=== PATIENT | male | born 1955 | race Caucasian/White ===

== ENCOUNTER 2017-04-19 09:02 | Emergency (ER) | payer MEDICARE, MEDICAID ==
[~2017-04-19] VITALS: Ht 170.2 cm; Wt 77.0 kg
[~2017-04-19 09:02] MED LIST: ADVAIR DISK2 IN; ALVESCO IN; AMOXICILLIN500 MG PO; ATROVENT HFA17 MCG IN; AUGMENTIN875TAB PO; CEPHALEXIN500 MG PO; CIALIS5 MG PO; DOXYCYCL HYC100 MG PO; GABAPENTIN300 MG PO; IPRATROPIU0.5 MG/3 M IN; LEVAQUIN500 MG PO; LORTAB 5/3255 MG PO; MEDDOSEPAK PO; NEURONTIN100 MG PO; PERCOCET 10/31 COMBO PO; PREDNISONE10 MG PO; PREDNISONE20 MG PO; PRILOSEC20 MG/CAP PO; PRILOSEC40 MG PO; PYRIDIUM200 MG PO; ROBITUSSIN AC10 ML PO; TERAZOSIN1 MG PO; TERAZOSIN2 MG PO; XOPENEX0.63 MG IN; ZPAK PO; [UNRECOGNIZED DRUG - OTHER]
[2017-04-19] MEDS ORDERED: ATORVASTATIN CA40 MG PO (09:45)
[2017-04-19] MEDS ORDERED: COMBIVENT RESPIMAT IN (09:46)
[2017-04-19] MEDS ORDERED: ASPIRIN81 MG PO (09:46)
[2017-04-19] MEDS ORDERED: TOPROL XL25 MG PO (09:47)
[2017-04-19] MEDS ORDERED: SYMBICORT 80-4.5MCG IN (09:49)
[2017-04-19] MEDS ORDERED: TRAZODONE50 MG PO (09:50)
[2017-04-19 10:42] LABS: HEMATOCRIT 36.7 % (39.0-50.0); IMMATURE GRANULOCYTES 0.5 % (0.0-1.0); MEAN CELL VOLUME 89.7 fL CALC (80.0-100.0); MEAN CORPUSCULAR HGB 31.8 pG CALC (26.0-32.0); MEAN CORPUSCULAR HGB CONC 35.4 g/L CALC (32.0-36.0); NEUT# 3.26 thou/uL (1.82-7.42); RED BLOOD COUNT 4.09 mill/uL (4.70-6.10); RED CELL DISTRI WIDTH 12.6 % (11.5-15.5)
[2017-04-19 10:44] LABS: URINE BILIRUBIN - DIPSTICK NEGATIVE (NEGATIVE); URINE BLOOD DIPSTICK NEGATIVE (NEGATIVE); URINE CLARITY CLEAR; URINE COLOR YELLOW; URINE GLUCOSE - DIPSTICK NEGATIVE (NEGATIVE); URINE KETONE NEGATIVE (NEGATIVE); URINE LEUK ESTERASE NEGATIVE (NEGATIVE); URINE NITRITE - DIPSTICK NEGATIVE (Negative); URINE PROTEIN - DIPSTICK TRACE mg/dL (NEG-TRACE); URINE SPECIFIC GRAVITY 1.015; URINE UROBILINOGEN - DIPSTICK >=8.0 E.U./dL (0.2)
[2017-04-19 10:54] LABS: D-DIMER 0.48 mg/L (0.19-0.60); INTERNATIONAL NORMALIZED RATIO 0.9 RATIO (0.7-1.3)
[2017-04-19 10:56] LABS: ALBUMIN 4.1 g/dL (3.2-5.0); ALKALINE PHOSPHATASE 63 u/l (38-126); ANION GAP 13 (6-22 (CALC)); BILIRUBIN, TOTAL 1.2 mg/dL (0.0-1.4); BUN 10 mg/dL (8-23); BUN/CREATININE RATIO 15 (12-20 (CALC)); CALCIUM 9.1 mg/dL (8.4-10.2); CARBON DIOXIDE 26 mmol/l (22-30); CHLORIDE 103 mmol/l (95-108); CREATININE 0.7 mg/dL (0.7-1.3); GFR > 60 ML/MIN (>=60 (CALC)); GFR FOR AFR.AMER. > 60 ML/MIN (>=60 (CALC)); GLUCOSE 114 mg/dL (82-115); POTASSIUM 4.1 mmol/l (3.5-5.1); SGOT/AST 18 u/l (19-48); SGPT/ALT 27 u/l (11-66); SODIUM 138 mmol/l (137-146); TOTAL PROTEIN 6.7 g/dL (6.3-8.2)
[2017-04-19 11:07] LABS: MYOGLOBIN 70 ng/mL (0 - 121)
[2017-04-19] MEDS ORDERED: CEPHALEXIN500 MG PO (13:28)
[2017-04-19 13:42] VITALS: BP 140/78
== END 2017-04-19 13:51 | disposition home or self-care (01) ==
LOC: ED 09:02
PROVIDERS: Emergency Medicine
DX: J44.9 Chronic obstructive pulmonary disease, unspecified (principal); J40 Bronchitis, not specified as acute or chronic; R05 Cough
CPT/HCPCS: Q9967

== ENCOUNTER 2017-09-12 07:58 | Emergency (ER) | payer MEDICARE, MEDICAID ==
[~2017-09-12] VITALS: Ht 170.2 cm; Wt 70.0 kg
[~2017-09-12 07:58] MED LIST changes: +ASPIRIN81 MG PO; +ATORVASTATIN CA40 MG PO; +COMBIVENT RESPIMAT IN; +SYMBICORT 80-4.5MCG IN; +TOPROL XL25 MG PO; +TRAZODONE50 MG PO
[2017-09-12] MEDS ORDERED: ULTRAM50 M1 PO (09:08)
[2017-09-12 09:22] VITALS: BP 148/84
== END 2017-09-12 09:25 | disposition home or self-care (01) ==
LOC: ED 07:58
PROC: 2W3DX1Z Immobilization of Left Lower Arm using Splint (ICD-10-PCS; principal; 2017-09-12)
DX: S52.202A Unspecified fracture of shaft of left ulna, initial encounter for closed fracture (principal); J44.9 Chronic obstructive pulmonary disease, unspecified; K21.9 Gastro-esophageal reflux disease without esophagitis; I25.2 Old myocardial infarction; Z85.46 Personal history of malignant neoplasm of prostate; W11.XXXA Fall on and from ladder, initial encounter

== ENCOUNTER 2017-11-01 19:58 | Emergency (ER) | payer MEDICARE, MEDICAID ==
[~2017-11-01] VITALS: Ht 170.2 cm; Wt 73.6 kg
[~2017-11-01 19:58] MED LIST changes: +ULTRAM50 M1 PO
[2017-11-01] MEDS ORDERED: PERCOCET 5/325M1 TAB PO (22:13)
[2017-11-01 22:29] VITALS: BP 136/81
== END 2017-11-01 22:29 | disposition home or self-care (01) ==
LOC: ED 19:58
DX: S70.01XA Contusion of right hip, initial encounter (principal); S40.812A Abrasion of left upper arm, initial encounter; S40.811A Abrasion of right upper arm, initial encounter; V03.19XA Pedestrian with other conveyance injured in collision with car, pick-up truck or van in traffic accident, initial encounter; Y92.410 Unspecified street and highway as the place of occurrence of the external cause; Y93.I9 Activity, other involving external motion

== ENCOUNTER 2018-11-05 17:42 | Emergency (ER) | payer MEDICARE, MEDICAID ==
[~2018-11-05] VITALS: Ht 170.2 cm; Wt 70.0 kg
[~2018-11-05 17:42] MED LIST changes: +PERCOCET 5/325M1 TAB PO
[2018-11-05 18:33] LABS: HEMOGLOBIN 12.8 g/dl (14.0-18.0); IMMATURE GRANULOCYTES 0.6 % (0.0-5.0); MEAN CORPUSCULAR HGB 31.8 pG CALC (26.0-32.0); MEAN CORPUSCULAR HGB CONC 34.6 g/L CALC (32.0-36.0); NEUT# 5.12 thou/uL (1.82-7.42); RED BLOOD COUNT 4.02 mill/uL (4.70-6.10); RED CELL DISTRI WIDTH 12.7 % (11.5-15.5)
[2018-11-05 18:45] LABS: ALBUMIN 4.1 g/dL (3.2-5.0); ALKALINE PHOSPHATASE 83 u/l (38-126); ANION GAP 18 (6-22 (CALC)); BILIRUBIN, TOTAL 1.2 mg/dL (0.0-1.4); BUN 11 mg/dL (8-23); BUN/CREATININE RATIO 16 (12-20 (CALC)); CARBON DIOXIDE 27 mmol/l (22-30); CHLORIDE 98 mmol/l (95-108); CREATININE 0.7 mg/dL (0.7-1.3); GFR > 60 ML/MIN (>=60 (CALC)); GFR FOR AFR.AMER. > 60 ML/MIN (>=60 (CALC)); POTASSIUM 3.8 mmol/l (3.5-5.1); SGOT/AST 31 u/l (19-48); SODIUM 138 mmol/l (137-146); TOTAL PROTEIN 6.9 g/dL (6.3-8.2)
[2018-11-05] MEDS ORDERED: PREDNISONE50 MG PO (19:09)
[2018-11-05] MEDS ORDERED: DOXYCYCL HYC100 MG PO (19:09)
--- NOTE | 2018-11-05 19:15 | NUR ---
BREATHING TREATMENT GIVEN BACK TO BACK.
[2018-11-05 19:31] VITALS: BP 147/81
== END 2018-11-05 19:39 | disposition home or self-care (01) ==
LOC: ED 17:42
PROVIDERS: Emergency Medicine
DX: J18.9 Pneumonia, unspecified organism (principal); J44.1 Chronic obstructive pulmonary disease with (acute) exacerbation; R06.02 Shortness of breath; R00.0 Tachycardia, unspecified; R50.9 Fever, unspecified; R05 Cough; I10 Essential (primary) hypertension

== ENCOUNTER → 2018-12-05 | Outpatient (REF) | payer MEDICARE, MEDICAID ==
[~2018-12-05] MED LIST changes: +PREDNISONE50 MG PO
== END | disposition home or self-care (01) ==
LOC: LABREF 17:27
PROVIDERS: ATTEND Urology
DX: C61 Malignant neoplasm of prostate (principal)

== ENCOUNTER 2019-02-06 19:21 | Emergency (ER) | payer MEDICARE, MEDICAID ==
[~2019-02-06] VITALS: Ht 170.2 cm; Wt 76.8 kg
[2019-02-06 20:19] LABS: HEMATOCRIT 41.1 % (39.0-50.0); HEMOGLOBIN 13.8 g/dl (14.0-18.0); IMMATURE GRANULOCYTES 0.3 % (0.0-5.0); MEAN CELL VOLUME 92.2 fL CALC (80.0-100.0); MEAN CORPUSCULAR HGB 30.9 pG CALC (26.0-32.0); MEAN CORPUSCULAR HGB CONC 33.6 g/L CALC (32.0-36.0); NEUT# 2.61 thou/uL (1.82-7.42); RED BLOOD COUNT 4.46 mill/uL (4.70-6.10); RED CELL DISTRI WIDTH 12.9 % (11.5-15.5)
[2019-02-06 20:25] LABS: ALBUMIN 4.4 g/dL (3.2-5.0); ALKALINE PHOSPHATASE 63 u/l (38-126); ANION GAP 14 (6-22 (CALC)); BUN 16 mg/dL (8-23); BUN/CREATININE RATIO 23 (12-20 (CALC)); CARBON DIOXIDE 28 mmol/l (22-30); CHLORIDE 100 mmol/l (95-108); CREATININE 0.7 mg/dL (0.7-1.3); GFR > 60 ML/MIN (>=60 (CALC)); GFR FOR AFR.AMER. > 60 ML/MIN (>=60 (CALC)); POTASSIUM 4.3 mmol/l (3.5-5.1); SGOT/AST 23 u/l (19-48); SODIUM 138 mmol/l (137-146); TOTAL PROTEIN 7.1 g/dL (6.3-8.2)
[2019-02-06 20:38] LABS: MYOGLOBIN 63 ng/mL (0 - 121)
[2019-02-06 20:40] LABS: BILIRUBIN, TOTAL 0.6 mg/dL (0.0-1.4)
[2019-02-06 21:19] LABS: URINE BILIRUBIN - DIPSTICK NEGATIVE (NEGATIVE); URINE BLOOD DIPSTICK NEGATIVE (NEGATIVE); URINE COLOR YELLOW; URINE GLUCOSE - DIPSTICK NEGATIVE (NEGATIVE); URINE KETONE NEGATIVE (NEGATIVE); URINE LEUK ESTERASE NEGATIVE (NEGATIVE); URINE NITRITE - DIPSTICK NEGATIVE (Negative); URINE PH 5.5 (4.5-8.0); URINE PROTEIN - DIPSTICK NEGATIVE (NEG-TRACE); URINE SPECIFIC GRAVITY >=1.030
[2019-02-06 21:27] VITALS: BP 142/83
== END 2019-02-06 21:36 | disposition home or self-care (01) ==
LOC: ED 19:21
PROVIDERS: Emergency Medicine
DX: J43.9 Emphysema, unspecified (principal); I10 Essential (primary) hypertension; I25.10 Atherosclerotic heart disease of native coronary artery without angina pectoris; R06.02 Shortness of breath

== ENCOUNTER 2019-03-13 01:24 | Emergency (ER) | payer MEDICARE, MEDICAID ==
[~2019-03-13] VITALS: Ht 170.2 cm; Wt 70.0 kg
[2019-03-13 02:20] VITALS: BP 124/70
== END 2019-03-13 02:18 | disposition home or self-care (01) ==
LOC: ED 01:24
PROC: 0HQGXZZ Repair Left Hand Skin, External Approach (ICD-10-PCS; principal; 2019-03-13)
DX: S61.412A Laceration without foreign body of left hand, initial encounter (principal); S80.812A Abrasion, left lower leg, initial encounter; S40.811A Abrasion of right upper arm, initial encounter; I10 Essential (primary) hypertension; I25.10 Atherosclerotic heart disease of native coronary artery without angina pectoris; J43.9 Emphysema, unspecified; F10.129 Alcohol abuse with intoxication, unspecified; W19.XXXA Unspecified fall, initial encounter; Y92.009 Unspecified place in unspecified non-institutional (private) residence as the place of occurrence of the external cause

== ENCOUNTER 2019-05-07 22:27 | Emergency (ER) | payer MEDICARE, MEDICAID ==
[~2019-05-07] VITALS: Ht 170.2 cm; Wt 70.9 kg
[2019-05-07 23:00] LABS: HEMATOCRIT 42.6 % (39.0-50.0); HEMOGLOBIN 14.5 g/dl (14.0-18.0); IMMATURE GRANULOCYTES 0.4 % (0.0-5.0); MEAN CELL VOLUME 91.4 fL CALC (80.0-100.0); MEAN CORPUSCULAR HGB 31.1 pG CALC (26.0-32.0); NEUT# 3.27 thou/uL (1.82-7.42); RED BLOOD COUNT 4.66 mill/uL (4.70-6.10); RED CELL DISTRI WIDTH 13.5 % (11.5-15.5)
--- NOTE | 2019-05-07 23:21 | NUR ---
BREATHING TREATMENT GIVEN BACK TO BACK WITH 2 ALBUTEROL AND 1 DUONEB. BREATHING TECH. FOR GOOD DEPOSITION TO THE LUNGS.
[2019-05-07 23:31] LABS: ALBUMIN 4.9 g/dL (3.2-5.0); ALKALINE PHOSPHATASE 58 u/l (38-126); ANION GAP 15 (6-22 (CALC)); BUN 17 mg/dL (8-23); BUN/CREATININE RATIO 19 (12-20 (CALC)); CARBON DIOXIDE 30 mmol/l (22-30); CHLORIDE 98 mmol/l (95-108); CREATININE 0.9 mg/dL (0.7-1.3); GFR > 60 ML/MIN (>=60 (CALC)); GFR FOR AFR.AMER. > 60 ML/MIN (>=60 (CALC)); POTASSIUM 3.8 mmol/l (3.5-5.1); SGOT/AST 20 u/l (19-48); SODIUM 139 mmol/l (137-146); TOTAL PROTEIN 7.9 g/dL (6.3-8.2)
[2019-05-07 23:43] LABS: MYOGLOBIN 102 ng/mL (0 - 121)
[2019-05-07] MEDS ORDERED: PREDNISONE50 MG PO (23:52)
[2019-05-08 00:50] VITALS: BP 147/73
== END 2019-05-08 00:48 | disposition home or self-care (01) ==
LOC: ED 22:27
PROVIDERS: Family Medicine
DX: J44.1 Chronic obstructive pulmonary disease with (acute) exacerbation (principal); R06.02 Shortness of breath; R05 Cough

== ENCOUNTER 2019-08-11 11:03 | Observation (INO) | payer MEDICARE, MEDICAID ==
[~2019-08-11] VITALS: Ht 170.2 cm; Wt 62.0 kg
[~2019-08-11 11:03] MED LIST changes: -GABAPENTIN300 MG PO; +GABAPENTIN600 MG PO
[2019-08-11] MEDS ORDERED: PRAVACHOL20 MG PO (11:43)
[2019-08-11] MEDS ORDERED: ALBUTEROL SUL0.083 % IN (11:44)
[2019-08-11 11:56] LABS: IMMATURE GRANULOCYTES 0.2 % (0.0-5.0); MEAN CELL VOLUME 92.1 fL CALC (80.0-100.0); MEAN CORPUSCULAR HGB CONC 33.7 g/L CALC (32.0-36.0); NEUT# 6.88 thou/uL (1.82-7.42); RED BLOOD COUNT 3.93 mill/uL (4.70-6.10); RED CELL DISTRI WIDTH 13.4 % (11.5-15.5)
[2019-08-11 12:08] LABS: HEMATOCRIT 36.2 % (39.0-50.0); HEMOGLOBIN 12.2 g/dl (14.0-18.0)
[2019-08-11 12:11] LABS: ALKALINE PHOSPHATASE 73 u/l (38-126); AMYLASE 42 u/l (30-110); ANION GAP 12 (6-22 (CALC)); BUN 11 mg/dL (8-23); BUN/CREATININE RATIO 14 (12-20 (CALC)); CARBON DIOXIDE 29 mmol/l (22-30); CHLORIDE 101 mmol/l (95-108); CREATININE 0.8 mg/dL (0.7-1.3); GFR > 60 ML/MIN (>=60 (CALC)); GFR FOR AFR.AMER. > 60 ML/MIN (>=60 (CALC)); LIPASE 37 u/l (23-300); POTASSIUM 4.5 mmol/l (3.5-5.1); SGOT/AST 13 u/l (19-48); SODIUM 137 mmol/l (137-146)
[2019-08-11 16:18] VITALS: BP 110/73
[2019-08-11] MEDS ORDERED: QUETIAPINE FUMA50 MG PO ×2 (18:07→18:16)
[2019-08-11] MEDS ORDERED: ROPINIROLE1 MG PO (18:16)
[2019-08-11] MEDS ORDERED: AMANTADINE PO (18:17)
[2019-08-11] MEDS ORDERED: SYMBICORT1 AE1 IN (18:17)
[2019-08-11] MEDS ORDERED: SG ASA LOW81 M1 PO (18:18)
[2019-08-11 19:30] VITALS: BP 120/77
[2019-08-12 02:31] LABS: URINE BILIRUBIN - DIPSTICK NEGATIVE (NEGATIVE); URINE BLOOD DIPSTICK NEGATIVE (NEGATIVE); URINE COLOR YELLOW; URINE GLUCOSE - DIPSTICK NEGATIVE (NEGATIVE); URINE KETONE NEGATIVE (NEGATIVE); URINE LEUK ESTERASE NEGATIVE (NEGATIVE); URINE NITRITE - DIPSTICK NEGATIVE (Negative); URINE PROTEIN - DIPSTICK NEGATIVE (NEG-TRACE); URINE SPECIFIC GRAVITY 1.015; URINE UROBILINOGEN - DIPSTICK 0.2 E.U./dL (0.2)
[2019-08-12 04:44] VITALS: BP 98/63
[2019-08-12 05:22] LABS: HEMATOCRIT 31.5 % (39.0-50.0); HEMOGLOBIN 10.6 g/dl (14.0-18.0); IMMATURE GRANULOCYTES 0.3 % (0.0-5.0); MEAN CELL VOLUME 92.9 fL CALC (80.0-100.0); MEAN CORPUSCULAR HGB 31.3 pG CALC (26.0-32.0); MEAN CORPUSCULAR HGB CONC 33.7 g/L CALC (32.0-36.0); NEUT# 1.65 thou/uL (1.82-7.42); RED BLOOD COUNT 3.39 mill/uL (4.70-6.10); RED CELL DISTRI WIDTH 13.3 % (11.5-15.5)
[2019-08-12 05:36] LABS: ANION GAP 9 (6-22 (CALC)); BUN 10 mg/dL (8-23); BUN/CREATININE RATIO 14 (12-20 (CALC)); CARBON DIOXIDE 25 mmol/l (22-30); CHLORIDE 107 mmol/l (95-108); CREATININE 0.7 mg/dL (0.7-1.3); GFR > 60 ML/MIN (>=60 (CALC)); GFR FOR AFR.AMER. > 60 ML/MIN (>=60 (CALC)); POTASSIUM 3.6 mmol/l (3.5-5.1); SODIUM 138 mmol/l (137-146)
[2019-08-12 07:37] VITALS: BP 94/43
[2019-08-12] MEDS ORDERED: ZESTRIL10 MG PO (15:43)
[2019-08-12] MEDS ORDERED: PAIN RELIEF EX500 M1 PO (15:45)
[2019-08-12] MEDS ORDERED: CILOSTAZOL50 MG PO (15:45)
[2019-08-12] MEDS ORDERED: PREDNISONE10 MG PO (15:46)
[2019-08-12] MEDS ORDERED: PROAIR HFA108 MCG/AC PO (15:48)
[2019-08-12] MEDS ORDERED: SENNA8.8 MG/5 M PO (15:48)
[2019-08-12 16:15] VITALS: BP 90/51
[2019-08-12 19:18] VITALS: BP 125/78
[2019-08-13 04:36] VITALS: BP 131/74
[2019-08-13 08:30] VITALS: BP 108/61
[2019-08-13 08:32] VITALS: BP 108/61
== END 2019-08-13 12:23 ==
LOC: ED 11:03 → ED-I 13:37 → ED 13:52 → MS2 13:53
PROVIDERS: Nurse Practitioner Family; ADMIT Internal Medicine; ATTEND Internal Medicine
DX: K56.7 Ileus, unspecified (principal); I10 Essential (primary) hypertension; J96.11 Chronic respiratory failure with hypoxia; J43.9 Emphysema, unspecified; I25.10 Atherosclerotic heart disease of native coronary artery without angina pectoris; C61 Malignant neoplasm of prostate; G62.9 Polyneuropathy, unspecified; R13.10 Dysphagia, unspecified; I25.2 Old myocardial infarction; Z95.1 Presence of aortocoronary bypass graft; Z87.820 Personal history of traumatic brain injury; Z87.891 Personal history of nicotine dependence; Z99.81 Dependence on supplemental oxygen
CPT/HCPCS: G0378; Q9967; S0164

== ENCOUNTER 2019-09-07 09:52 | Emergency (ER) | payer MEDICARE, MEDICAID ==
[~2019-09-07] VITALS: Ht 170.2 cm; Wt 59.0 kg
[~2019-09-07 09:52] MED LIST changes: +ALBUTEROL SUL0.083 % IN; +AMANTADINE PO; +CILOSTAZOL50 MG PO; +PAIN RELIEF EX500 M1 PO; +PRAVACHOL20 MG PO; +PROAIR HFA108 MCG/AC PO; +QUETIAPINE FUMA50 MG PO; +ROPINIROLE1 MG PO; +SENNA8.8 MG/5 M PO; +SG ASA LOW81 M1 PO; +SYMBICORT1 AE1 IN; +ZESTRIL10 MG PO
[2019-09-07] MEDS ORDERED: GENTAK0.32 OD ×2 (11:27→11:39)
[2019-09-07 11:40] VITALS: BP 99/59
== END 2019-09-07 11:40 | disposition home or self-care (01) ==
LOC: ED 09:52
DX: H10.9 Unspecified conjunctivitis (principal); I10 Essential (primary) hypertension; I25.10 Atherosclerotic heart disease of native coronary artery without angina pectoris; J43.9 Emphysema, unspecified; Z95.1 Presence of aortocoronary bypass graft

== ENCOUNTER 2019-10-23 | Inpatient (IN) | payer MEDICARE, MEDICAID ==
[2019-10-22 21:19] LABS: IMMATURE GRANULOCYTES 0.6 % (0.0-5.0); MEAN CORPUSCULAR HGB CONC 34.6 g/L CALC (32.0-36.0); NEUT# 5.49 thou/uL (1.82-7.42); RED BLOOD COUNT 4.36 mill/uL (4.70-6.10); RED CELL DISTRI WIDTH 11.9 % (11.5-15.5)
[2019-10-22 21:21] LABS: URINE BILIRUBIN - DIPSTICK NEGATIVE (NEGATIVE); URINE BLOOD DIPSTICK NEGATIVE (NEGATIVE); URINE COLOR YELLOW; URINE GLUCOSE - DIPSTICK NEGATIVE (NEGATIVE); URINE KETONE NEGATIVE (NEGATIVE); URINE LEUK ESTERASE NEGATIVE (NEGATIVE); URINE NITRITE - DIPSTICK NEGATIVE (Negative); URINE PH 5.5 (4.5-8.0); URINE PROTEIN - DIPSTICK 30 mg/dL (NEG-TRACE); URINE SPECIFIC GRAVITY >=1.030; URINE UROBILINOGEN - DIPSTICK 0.2 E.U./dL (0.2)
[2019-10-22 21:22] LABS: HEMATOCRIT 37.9 % (39.0-50.0); HEMOGLOBIN 13.1 g/dl (14.0-18.0); MEAN CELL VOLUME 86.9 fL CALC (80.0-100.0)
[2019-10-22 21:23] LABS: URINE RBC 0-2 RBC/hpf (0-5); URINE WBC 0-2 WBC/hpf (0-5)
[2019-10-22 21:25] LABS: BARBITURATES NEGATIVE (NEGATIVE); COCAINE NEGATIVE (NEGATIVE); METHADONE NEGATIVE (NEGATIVE); OXCYCODONE NEGATIVE (NEGATIVE); TETRAHYDROCANNABIONOL POSITIVE (NEGATIVE); TRICYLIC ANTIDEPRESSANTS NEGATIVE (NEGATIVE)
[2019-10-22 21:39] LABS: ALBUMIN 4.5 g/dL (3.2-5.0); ALKALINE PHOSPHATASE 60 u/l (38-126); BILIRUBIN, TOTAL 0.6 mg/dL (0.0-1.4); BUN 9 mg/dL (8-23); BUN/CREATININE RATIO 12 (12-20 (CALC)); CARBON DIOXIDE 27 mmol/l (22-30); CREATININE 0.8 mg/dL (0.7-1.3); ETHYL ALCOHOL 0 mg/dl (0-30); GFR > 60 ML/MIN (>=60 (CALC)); GFR FOR AFR.AMER. > 60 ML/MIN (>=60 (CALC)); SGOT/AST 17 u/l (19-48); SODIUM 133 mmol/l (137-146); TOTAL PROTEIN 7.7 g/dL (6.3-8.2)
[2019-10-22 21:41] LABS: ANION GAP 16 (6-22 (CALC)); CHLORIDE 94 mmol/l (95-108); POTASSIUM 4.4 mmol/l (3.5-5.1)
[~2019-10-23] MED LIST changes: +GENTAK0.32 OD
[2019-10-23 01:17] VITALS: BP 145/89
[2019-10-23 03:40] VITALS: BP 155/87
[2019-10-23 08:40] VITALS: BP 128/73
[2019-10-23 14:30] VITALS: BP 138/84
[2019-10-23 18:20] VITALS: BP 138/89
[2019-10-24 03:40] VITALS: BP 155/94
== END 2019-10-24 14:27 | DRG 101 ==
PROVIDERS: Family Medicine; ADMIT Internal Medicine
DX: G40.409 Other generalized epilepsy and epileptic syndromes, not intractable, without status epilepticus (principal); R29.810 Facial weakness; I10 Essential (primary) hypertension; J43.9 Emphysema, unspecified; I25.10 Atherosclerotic heart disease of native coronary artery without angina pectoris; G62.9 Polyneuropathy, unspecified; K21.9 Gastro-esophageal reflux disease without esophagitis; R82.6 Abnormal urine levels of substances chiefly nonmedicinal as to source; Z85.46 Personal history of malignant neoplasm of prostate; Z87.891 Personal history of nicotine dependence; Z95.1 Presence of aortocoronary bypass graft; Z87.820 Personal history of traumatic brain injury
CPT/HCPCS: J1650; J1953; J2060